=== PATIENT | male | born 1940 | race Caucasian/White ===

== ENCOUNTER 2020-03-07 07:32 | Outpatient (CLI) | payer MEDICARE, SELFPAY ==
--- NOTE | ~2020-03-07 | NM_ITS ---
EXAMINATION: NM bone scan whole body DATE: 03/07/2020 11:48 INDICATION: Malignant neoplasm of prostate. TECHNIQUE: 25 mCi Tc-99m HDP was administered intravenously. Delayed whole-body scintigrams were obt ained. COMPARISON: CT abdomen and pelvis 03/07/2020 FINDINGS: There are foci of increased activity in the left acetabulum, spine, and multiple ribs corre lating with sclerotic lesions by CT, consistent with metastatic disease. There are foci of increased activity in proximal right humerus without radiographic comparison, likely metastatic disease. Foci o f increased activity in the heads of the clavicles and at the acromioclavicular joints without radiog raphic comparison may be metastatic disease or osteoarthritis. There is increased activity in the pat ellofemoral compartments of the knees without radiographic comparison, likely osteoarthritis. IMPRESSION: 1. Widespread osseous metastatic disease. Reviewed, dictated and finalized at location A. LER SUPERVISOR
--- NOTE | ~2020-03-07 | CT_ITS ---
EXAMINATION: CT abdomen pelvis w con EXAM DATE: 03/07/2020 08:15 INDICATION: Malignant neoplasm of prostate. TECHNIQUE: Spiral CT of the abdomen and pelvis was performed following intravenous injection of 100 m L Omnipaque 350. Axial, coronal and sagittal images were reviewed. The dose-length product (DLP) fo r this examination was 872.50 mGy-cm. The exposure was tailored according to patient size (auto mA e xposure control), and iterative reconstruction (ASIR) was used as additional dose reduction technique . Comparison is made to prior examination from 04/01/2009. FINDINGS: The liver, spleen, adrenal glands and pancreas are unremarkable. There are gallstones with in an otherwise unremarkable gallbladder. No evidence of obstructive biliary disease. Portal and sp lenic veins are patent. Kidneys enhance symmetrically. There is no hydronephrosis. Small left infer ior calyceal stone. The prostate is unremarkable. The bladder is unremarkable. Largest lymph node identified is left iliac chain measuring 8 x 9 mm. No pathologically enlarged lymph nodes. There is moderate scattered arteriosclerotic disease. Cecal resection. There is moderate sigmoid colonic diverticulosis. There is no adjacent inflammatory change to suggest diverticulitis. Small umbilical, supra umbilical fat-containing hernias. The sto mach and small bowel are unremarkable. There is expected amount of colonic stool. No free intraper itoneal gas. The heart is normal in size. There are no pericardial or pleural effusions. Left bas ilar linear atelectasis. Numerous but small osteoblastic lesions, new compared to 2009 IMPRESSION: 1. Numerous small osteoblastic metastatic lesions. 2. Status post right hemicolectomy. 3. Moderate sigmoid diverticulosis. 5. Left nephrolithiasis. Reviewed, dictated and finalized at location B. B DRIVER
[2020-03-07 08:13] LABS: Estimated Glomerular Filt Rate > 60
== END 2020-03-07 07:33 | disposition home or self-care (01) ==
PROVIDERS: PCP Family Medicine; Visit Provider Urology
DX: C61 Malignant neoplasm of prostate (principal); C79.51 Secondary malignant neoplasm of bone; Z90.49 Acquired absence of other specified parts of digestive tract; K57.90 Diverticulosis of intestine, part unspecified, without perforation or abscess without bleeding; N20.0 Calculus of kidney
CPT/HCPCS: 74177; 78306; A9561; Q9967

== ENCOUNTER → 2020-06-30 08:43 | Outpatient (CLI) | payer MEDICARE, SELFPAY ==
--- NOTE | ~2020-06-30 | XR_ITS ---
EXAMINATION: XR chest 2V EXAM DATE: 06/30/2020 09:09 INDICATION: R06.02 - Shortness of breath . TECHNIQUE: Frontal and lateral projections of the chest obtained and reviewed. Comparison is made to prior examination from 02/22/2016. FINDINGS: There are innumerable scattered osteoblastic lesions, new compared to 2016 x-ray. No conflu ent consolidation, pneumothorax or pleural effusion suspected. Cardiomediastinal silhouette is normal . IMPRESSION: 1. No acute cardiac pulmonary findings. 2. Extensive osteoblastic disease. Reviewed, dictated and finalized at location A.
== END ==
PROVIDERS: PCP Family Medicine; Visit Provider Nurse Practitioner Family
DX: R05 Cough (principal); R06.02 Shortness of breath
CPT/HCPCS: 71046

== ENCOUNTER 2020-06-30 09:36 | Outpatient (CLI) | payer MEDICARE, SELFPAY ==
--- NOTE | 2020-06-30 | ECG_ITS ---
Measurements Intervals [place] Rate: 71 P: 49 VT: 188 QRS: 47 QRSD: 85 T: 35 QT: 376 QTc: 410 Interpretive Statements SINUS RHYTHM BASELINE ARTIFACT- I, II, III, AVR, AVL, AVF NORMAL ECG Electronically Signed On 06-30-2020 10:15:04 CDT by Jose Roberto Smith D.O.
== END 2020-06-30 09:37 | disposition home or self-care (01) ==
PROVIDERS: PCP Family Medicine; Visit Provider Nurse Practitioner Family
DX: R06.02 Shortness of breath (principal)
CPT/HCPCS: 93005

== ENCOUNTER 2020-07-11 12:32 | Outpatient (CLI) | payer MEDICARE, SELFPAY ==
--- NOTE | 2020-07-11 13:00 | ECHO_ITS ---
Patient Info Name: Leonardo Malagon Age: 79 years : 1940 Gender: Male Ht: 69 in Wt: 210 lbs BSA: 2.18 m2 HR: 78 bpm BP: 160 / 96 mmHg Technical Quality: Fair Exam Date: 07/11/2020 1:18 PM Exam Location: [facility] Patient Status: Outpatient Admit Date: 07/11/2020 Staff Ordering Physician: Usha Azar NP Photo Lab Manager: Marta Christina RDCS Attending Provider: Usha Azar NP Referring Physician: oDe NEWTON; Exam Type: CA echo doppler color flow Study Info Indications - essential primary hypertension Complete two-dimensional, color flow and Doppler transthoracic echocardiogram is performed. Summary 1. Complete two-dimensional, color flow and Doppler transthoracic echocardiogram is performed. 2. Left ventricular chamber dimension is normal. 3. Left ventricular systolic function is normal, estimated at 60-65%. 4. There is mildly increased left ventricular wall thickness. 5. The left ventricular diastolic function is grade I diastolic dysfunction. 6. E/e' 12 is mildly elevated. 7. No pulmonary hypertension, estimated pulmonary arterial systolic pressure is 28 mmHg. Left Ventricle E/e' 12 is mildly elevated. Left ventricular chamber dimension is normal. Left ventricular systolic function is normal, estimated at 60-65%. There is mildly increased left ventricular wall thickness. The left ventricular diastolic function is grade I diastolic dysfunction. Right Ventricle Right ventricular chamber dimension is normal. Right ventricular systolic function is normal. Left Atria Left atrial chamber dimension is normal. Right Atria Right atrial chamber dimension is normal. Aortic Valve The aortic valve is trileaflet. There is no aortic valve stenosis. There is no aortic valve regurgitation. Pulmonic Valve There is no pulmonic regurgitation. Mitral Valve There is no mitral valve stenosis. There is no mitral valve regurgitation. Tricuspid Valve There is no tricuspid valve regurgitation. No pulmonary hypertension, estimated pulmonary arterial systolic pressure is 28 mmHg. Pericardium/Pleural There is no pericardial effusion. Inferior Vena Cava Normal inferior vena cava with >50% collapse upon inspiration consistent with normal right atrial pressure, 5 mmHg. Aorta The aortic root size at the sinus of Valsalva is normal. Left Ventricular Outflow Tract Name Value Normal LVOT 2D LVOT Diameter 2.0 cm LVOT Doppler LVOT Peak Gradient 6 mmHg LVOT Mean Gradient 3 mmHg LVOT VTI 23 cm LVOT VTI/AV VTI Ratio 0.9 LVOT Stroke Volume 74 ml LVOT CO 16.0 l/min LVOT CI 7.3 l/min/m2 Mitral Valve Name Value Normal MV Doppler
== END 2020-07-11 12:33 | disposition home or self-care (01) ==
LOC: ANHCARD 12:33
PROVIDERS: PCP Family Medicine; Visit Provider Nurse Practitioner Family
DX: I10 Essential (primary) hypertension (principal); R06.00 Dyspnea, unspecified
CPT/HCPCS: 93306

== ENCOUNTER 2021-04-26 08:25 | Outpatient (CLI) | payer MEDICARE, SELFPAY ==
--- NOTE | ~2021-04-26 | CT_ITS ---
EXAMINATION: CT abdomen pelvis wo con EXAM DATE: 04/26/2021 08:48 INDICATION: Prostate cancer.. TECHNIQUE: Spiral CT of the abdomen and pelvis was performed without contrast. Axial, coronal and s agittal images of the abdomen and pelvis were reviewed. The dose-length product (DLP) for this exami nation was 1106.63 mGy-cm. The exposure was tailored according to patient size (auto mA exposure con trol), and iterative reconstruction (ASIR) was used as additional dose reduction technique. Compariso n is made to prior examination from 03/07/2020. FINDINGS: The liver, spleen, adrenal glands and pancreas are unremarkable. There are gallstones wit hin an otherwise unremarkable gallbladder. No evidence of obstructive biliary disease. Portal and s plenic veins are patent. Kidneys enhance symmetrically. There is no hydronephrosis. Left inferior c alyceal linear stone measuring about 2 x 5 mm. The prostate is unremarkable. The bladder is unremar kable. No pathologically enlarged abdomen or pelvis lymph nodes. There is moderate scattered arteri osclerotic disease. Cecal resection. There is moderate sigmoid colonic diverticulosis. There is no adjacent inflammatory change to suggest diverticulitis. Small umbilical, supra umbilical fat-containing hernias. The sto mach and small bowel are unremarkable. There is expected amount of colonic stool. No free intraper itoneal gas. The heart is normal in size. There are no pericardial or pleural effusions. Left bas ilar linear atelectasis. Again there are numerous small osteoblastic lesions, appear less sclerotic than on prior study. IMPRESSION: 1. Numerous small osteoblastic metastatic lesions, overall less dense and conspicuous compared to consuelo or study. 2. Status post right hemicolectomy. 3. Moderate sigmoid diverticulosis. 5. Left nephrolithiasis. Reviewed, dictated and finalized at location B. TER HELP IMPRESSION: 1. Numerous small osteoblastic metastatic lesions, overall less dense and consp icuous compared to prior study. 2. Status post right hemicolectomy. 3. Moderate sigmoid diverticulosis. 5. Left nephrolithiasis.
--- NOTE | ~2021-04-26 | NM_ITS ---
EXAMINATION: NM bone scan whole body DATE: 04/26/2021 12:30 INDICATION: Malignant neoplasm of the prostate TECHNIQUE: 24.29 mCi Tc-99m HDP was administered intravenously. Delayed whole-body scintigrams were obtained. COMPARISON: Prior bone scan dated 03/07/[address] abdomen and pelvis dated 04/26/2021 FINDINGS: Persistent focus of increased uptake at the anterior left seventh rib. Decreased now subtle uptake at several foci of increased uptake along multiple additional rib lesions and at the proximal right hum eral diaphysis, the rib lesions with corresponding sclerotic lesions on the CT consistent with metast atic disease. No new or enlarging foci of abnormal bone uptake to suggest progression of metastatic d isease. Foci of likely degenerative joint centered uptake at the bilateral acromioclavicular, sternoc lavicular joints and at the right knee. Likely enthesopathic uptake at the left anterior tibial tuber osity. IMPRESSION: 1. Persistent focus of increased uptake at the anterior left seventh rib decrease in degree of uptake is fissure with numerous additional more subtle lesions at multiple ribs at the proximal right humer us likely related to response to treatment of metastatic disease. Reviewed, dictated and finalized at location A. RTAINMENT USHER IMPRESSION: 1. Persistent focus of increased uptake at the anterior left seventh rib decrea se in degree of uptake is fissure with numerous additional more subtle lesions at multiple ribs at the proximal right humerus likely related to response to tr eatment of metastatic disease.
== END 2021-04-26 08:26 | disposition home or self-care (01) ==
LOC: ANHIMG 08:29
PROVIDERS: PCP Family Medicine; Visit Provider Nurse Practitioner Adult Health
DX: C61 Malignant neoplasm of prostate (principal); M89.9 Disorder of bone, unspecified; Z90.49 Acquired absence of other specified parts of digestive tract; K57.90 Diverticulosis of intestine, part unspecified, without perforation or abscess without bleeding; N20.0 Calculus of kidney
CPT/HCPCS: 74176; 78306; A9561

== ENCOUNTER → 2022-01-08 14:16 | Outpatient (CLI) | payer MEDICARE, SELFPAY ==
--- NOTE | ~2022-01-08 | XR_ITS ---
XR ribs BI 3V w CXR 2V DATE: 01/08/2022 14:35 INDICATION: Bilateral chest pain, pleural diarrhea TECHNIQUE: Multiple views of right ribs and left RIBS. PA and lateral chest COMPARISON: 06/30/2020 PA and lateral chest April 26, 2021 radionuclide bone scan FINDINGS: Patchy osseous chronic areas of the ribs and shoulder girdles, consistent with known prosta te metastases. Diffuse idiopathic skeletal hyperostosis of the thoracic spine. No apparent rib fracture. Heart size appears within normal limits. Mild aortic unfolding. No hilar or mediastinal enlargement. No pulmonary infiltrate or consolidation, pleural effusion or pulmonary vascular congestion or pneumo thorax. IMPRESSION: Patchy osteosclerotic changes of the axial skeleton consistent with known prostate metast ases Reviewed, dictated and finalized at location A. IMPRESSION: Patchy osteosclerotic changes of the axial skeleton consistent with known prostate metastases
== END ==
PROVIDERS: PCP Family Medicine; Visit Provider Nurse Practitioner Family
DX: R07.81 Pleurodynia (principal); R91.8 Other nonspecific abnormal finding of lung field
CPT/HCPCS: 71046; 71110

== ENCOUNTER → 2022-02-01 13:15 | Outpatient (CLI) | payer MEDICARE, SELFPAY ==
--- NOTE | ~2022-02-01 | XR_ITS ---
XR foot LT 2V DATE: 02/01/2022 13:39 INDICATION: Fall one month ago. Left ankle, foot knee pain TECHNIQUE: AP and lateral views COMPARISON: None FINDINGS: There is osteopenia. Prominent plantar and posterior calcaneal enthesopathy. Second through fifth hammertoe deformities. No fracture or dislocation, periosteal reaction or bone destruction. IMPRESSION: Osteopenia Prominent plantar and posterior calcaneal enthesopathy No fracture or dislocation Reviewed, dictated and finalized at location B. OLEUM SUPPLY SPECIALIST
--- NOTE | ~2022-02-01 | XR_ITS ---
XR knee LT 2V DATE: 02/01/2022 13:40 INDICATION: Fall one month ago. Left knee pain TECHNIQUE: AP and lateral views COMPARISON: None FINDINGS: No fracture or dislocation or joint effusion. Very slight periarticular spurring of the pat amos. Joint spaces are preserved. No radiopaque intra-articular loose body or chondrocalcinosis. IMPRESSION: Slight patellofemoral osteoarthritis Reviewed, dictated and finalized at location B. TOP TRIMMER
--- NOTE | ~2022-02-01 | XR_ITS ---
XR ankle LT 2V DATE: 02/01/2022 13:39 INDICATION: Fall one month ago. Left ankle, foot and knee pain TECHNIQUE: AP and lateral views COMPARISON: None FINDINGS: There is moderate soft tissue swelling of the ankle, greater medially. There is prominent p lantar and particularly prominent posterior calcaneal enthesopathy. No fracture or dislocation of the ankle or disruption of the ankle mortise. No periosteal reaction or bone destruction. IMPRESSION: Soft tissue swelling; no fracture or dislocation or disruption of ankle mortise Prominent plantar and posterior calcaneal enthesopathy Reviewed, dictated and finalized at location B. THCARE ASSOCIATE IMPRESSION: Soft tissue swelling; no fracture or dislocation or disruption of a nkle mortise Prominent plantar and posterior calcaneal enthesopathy
== END ==
PROVIDERS: PCP Family Medicine; Visit Provider Nurse Practitioner Family
DX: M25.572 Pain in left ankle and joints of left foot (principal); M17.12 Unilateral primary osteoarthritis, left knee; M85.872 Other specified disorders of bone density and structure, left ankle and foot; M77.32 Calcaneal spur, left foot; M79.89 Other specified soft tissue disorders
CPT/HCPCS: 73560; 73600; 73620

== ENCOUNTER 2022-04-03 12:56 | Outpatient (CLI) | payer MEDICARE, SELFPAY ==
--- NOTE | ~2022-04-03 | DEXA_ITS ---
Bone Density Report Name: KINGS MEJIA Age: 81 Sex: Male Ethnicity: White Date of : 1940 Indication: screening for osteoporosis; height loss; cancer; asthma or emphysema; Referring Provider: GRISELDA VASQUEZ Study: Bone densitometry was performed. Exam Date: April 03, 2022 Accession number: [id number] Bone Density: Region BMD T-score Z-score Classification AP Spine(L1-L4) 1.392 2.7 3.9 Normal Femoral Neck (Left) 0.847 -0.6 0.9 Normal Total Hip (Left) 1.054 0.1 1.2 Normal Femoral Neck (Right) 0.864 -0.5 1.1 Normal Total Hip (Right) 1.081 0.3 1.4 Normal Total Hip Mean 1.068 0.2 1.3 Normal World Health Organization criteria for BMD impression classify patients as: Normal (T-score at or above -1.0), Osteopenia (T-score between -1.0 and -2.5), or Osteoporosis (T-score at or below -2.5). 10-year Fracture Risk: FRAX not reported because: All T-scores for Spine Total, Hip Total, Femoral Neck at or above -1.0 Clinical Information Provided by Patient: Has used the following medications: Vitamin D Has the following medical conditions: Asthma or Emphysema, Cancer Patient maximum height was 69 No regular weight bearing exercise Does not regularly consume dairy products Drinks caffeinated beverages Impression: The patient has normal bone mass. Discussion: BONE DENSITY IS ABOVE THE MINIMUM DESIRABLE LEVEL AT ALL SKELETAL SITES TESTED. This patient?s bone mineral density is above the minimum desirable level (T-score -1.0 or better) at all sites measured. The patient should follow a healthful lifestyle (good nutrition with adequate calcium and vitamin D, and appropriate weight-bearing exercise). Follow-Up: Consider repeating this study in 5 years or sooner if there is some new clinical indication. Reported by: [facility] on 04/03/2022 1:40:00 PM. Reviewed, dictated and finalized at location ADevante [facility]OSPITALFatuma
== END 2022-04-03 12:57 | disposition home or self-care (01) ==
PROVIDERS: PCP Family Medicine; Visit Provider Urology
DX: M85.88 Other specified disorders of bone density and structure, other site (principal)
CPT/HCPCS: 77080

== ENCOUNTER → 2022-11-30 12:32 | Outpatient (CLI) | payer MEDICARE, SELFPAY ==
--- NOTE | ~2022-11-30 | XR_ITS ---
EXAMINATION: XR knee LT 3V DATE: 11/30/2022 14:00 INDICATION: Left knee pain TECHNIQUE: Three views of the left knee were obtained. COMPARISON: 02/01/2022 FINDINGS: Alignment is normal. No fracture or osteochondral lesion. There is mild tricompartmental os teoarthritis characterized by tiny marginal osteophytes. No joint effusion/synovitis. Soft tissues a re unremarkable. IMPRESSION: 1. No acute osseous abnormality. Reviewed, dictated and finalized at location F.
--- NOTE | ~2022-11-30 | XR_ITS ---
EXAMINATION: XR ribs BI 3V w CXR 2V INDICATION: Pleurodynia TECHNIQUE: PA and lateral views of the chest and 3 views of the bilateral ribs were obtained. COMPARISON: 01/08/2022 FINDINGS: The lungs are free of acute opacities. No pleural effusion or pneumothorax. The cardiomedia stinal silhouette is normal. No displaced rib fracture is identified. There is an old healed fracture of the left sixth rib. Subtle sclerotic osseous lesions are consistent with metastatic prostate canc er. IMPRESSION: 1. No acute cardiopulmonary abnormality or evidence of displaced rib fracture. Reviewed, dictated and finalized at location F.
== END ==
PROVIDERS: PCP Family Medicine; Visit Provider Physician Assistant Medical
DX: M25.562 Pain in left knee (principal); R07.81 Pleurodynia
CPT/HCPCS: 71046; 71110; 73562

== ENCOUNTER 2023-09-02 09:46 | Outpatient (CLI) | payer MEDICARE, SELFPAY ==
[2023-09-02 10:18] LABS: Hematocrit 43.6 % (42.0-52.0); Hemoglobin 15.1 g/dL (14.0-18.0); Mean Corpuscular HGB Conc 34.6 g/dl (32-36); Mean Corpuscular Hemoglobin 30.5 pg (26-34); Mean Corpuscular Volume 88.1 fl (80-100); Mean Platelet Volume 10.2 fl (7.4-10.4); Platelet Count Result 196 k/mm3 (150-375); Red Blood Count 4.95 M/mm3 (4.6-6.20); Red Cell Distribution Width 13.2 % (11.5-14.5); White Blood Count 5.3 K/mm3 (4.5-10.0)
[2023-09-02 10:28] LABS: Hemoglobin A1C 5.5 % (<5.7)
[2023-09-02 10:30] LABS: Alanine Aminotransferase 10 U/L (6-50); Albumin Level 4.3 g/dL (3.5-5.1); Alkaline Phosphatase 72 U/L (38-126); Anion Gap 8 mmol/L (4-12); Aspartate Amino Transferase 18 U/L (17-59); Bilirubin,Total 0.6 mg/dL (0.2-1.3); Blood Urea Nitrogen 17 mg/dL (9-20); Calcium 9.4 mg/dL (8.4-10.2); Carbon Dioxide 29 mmol/L (22-30); Chloride 98 mmol/L (98-107); Cholesterol 129 mg/dL (0-200); Estimated Glomerular Filt Rate > 60; Glucose 112 mg/dL (65-110); HDL Direct 47 mg/dL; Sodium 135 mmol/L (137-145); Triglycerides 195 mg/dL (<150)
[2023-09-02 10:41] LABS: LDL Cholesterol Direct 60 mg/dL
[2023-09-02 10:55] LABS: Free T4 Free Thyroxine 1.45 ng/mL (0.78-2.19)
== END 2023-09-02 09:47 | disposition home or self-care (01) ==
LOC: ANHLAB 09:51
PROVIDERS: PCP Family Medicine; Visit Provider Nurse Practitioner Adult Health
DX: R06.00 Dyspnea, unspecified (principal); D64.9 Anemia, unspecified; E78.5 Hyperlipidemia, unspecified; Z13.29 Encounter for screening for other suspected endocrine disorder; R73.01 Impaired fasting glucose
CPT/HCPCS: 36415; 80053; 80061; 83036; 84439; 84443; 85027

== ENCOUNTER 2024-04-13 12:29 | Outpatient (CLI) | payer MEDICARE, SELFPAY ==
--- NOTE | ~2024-04-13 | PE_ITS ---
EXAMINATION: PET_PETPSMAST_PT DATE: 04/13/2024 15:01 INDICATION: Prostate cancer TECHNIQUE: 5.2 mCi of Illucix [id number]) was administered i.v. Low dose computed tomogr aphy (CT) images were acquired from the base of the brain to the base of the brain to the proximal th ighs for attenuation correction and anatomic localization. Positron emission tomography (PET) images were acquired in the same distribution beginning 89 minutes after injection. Images including fused P ET/CT images were reconstructed in axial, coronal, and sagittal planes. 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 The dose-length product was 1665.59mGy-cm. COMPARISON: CT dated 05/06/2021 FINDINGS: Head/neck: Typical pattern of symmetric physiologic increased activity in the lacrimal, parotid and submandibula r glands as well as along the mucosa of the nasal and oral cavities, pharynx and hypopharynx. No path ologically enlarged cervical lymphadenopathy or suspicious foci of increased uptake in the visualized head or neck. Chest: Chronic mucocele and associated discoid atelectasis/scarring at the posterior basilar segment of the left lower lobe. There are several unchanged chronic chronic lisa fissural nodules in both lungs, the 2 largest each measuring 9 x 7 mm along the left and right major fissures. There are a multiple afshan tional smaller pulmonary nodules the majority with tree-in-bud pattern in the inferior right upper lo be. No abnormal intrapulmonary PSMA activity. Heart size is normal. Atherosclerotic coronary artery c alcification. No pericardial effusion. Bilateral gynecomastia. There are several scattered calcified mediastinal lymph nodes consistent with old granulomatous disease. There is mild increased PSMA uptak e with maximal SUV 5.6 associated with a 7 mm AP window lymph node at the left side of the allen. Th ere is additional mildly increased PSMA uptake with maximal SUV of 3.5 associated with a second 3 mm AP window lymph node along the left side of the ascending thoracic aorta. Abdomen/pelvis/proximal thighs: Physiologic renal accumulation and excretion of activity in the kidneys, bladder and along portions o f ureters. 4 mm nonobstructing left renal stone. There are photopenic defects associated with small c ysts at the periphery of both kidneys. This includes a 1.5 cm high attenuation hemorrhagic versus pro teinaceous cyst. There are small calcified gallstones in the normal decompressed gallbladder. Normal degree and slightly heterogenous pattern of increased uptake throughout the liver and spleen without radiologic correlate or dominant PSMA avid lesion. The pancreas and bilateral adrenal glands are norm al. Moderate uptake scattered throughout the bowels with typical duodenal and proximal jejunal predom inance and without radiologic correlate, also likely physiologic. There is mild moderate diverticulos is along the sigmoid colon without adjacent inflammatory change to suggest diverticulitis. Postopera tive changes of prior right hemicolectomy with ileocolic anastomosis in the right abdomen. No other a bnormal foci of increased uptake or pathologically enlarged lymphadenopathy in the abdomen, pelvis or proximal thighs. Musculoskeletal: Severe cervical, thoracic and lumbar spondylosis with bridging osteophytes at multiple levels consist ent with diffuse idiopathic skeletal hyperostosis (DISH). Continued decrease in density of the previo usly noted numerous small sclerotic lesion initially seen on the CT dated 03/07/2020 in the majority of which are now indiscernible. No no new or enlarging suspicious lytic or blastic bone lesions. No P SMA avid bone lesions. IMPRESSION: 1. Interval resolution of the prior numerous sclerotic bone lesions consistent with likely response t o treatment of prior metastatic disease. 2. Mild uptake associated with a couple normal-sized mediastinal lymph nodes in the AP window which d espite the relatively low uptake and atypical distribution raises some suspicion for metastatic disea se. Recommend follow-up with serial PSMA levels with repeat imaging if these increase or as clinicall y indicated. 3. A few chronic likely benign lisa fissural nodules and multiple new 4 mm smaller nodules many with tree-in-bud pattern in the right lower lobe which are without PSMA uptake and are most likely infecti ous/inflammatory in etiology. Reviewed, dictated and finalized at location [facility]. [employer] IMPRESSION: 1. Interval resolution of the prior numerous sclerotic bone lesions consistent with likely response to treatment of prior metastatic disease. 2. Mild uptake associated with a couple normal-sized mediastinal lymph nodes in the AP window which despite the relatively low uptake and atypical distributio n raises some suspicion for metastatic disease. Recommend follow-up with serial PSMA levels with repeat imaging if these increase or as clinically indicated. 3. A few chronic likely benign lisa fissural nodules and multiple new 4 mm smal ler nodules many with tree-in-bud pattern in the right lower lobe which are wit hout PSMA uptake and are most likely infectious/inflammatory in etiology.
--- OUTSIDE RECORDS SUMMARY | 2024-04-13 13:04 | XMS_ITS | Referral Summary ---
Author Organization [facility] Address [address] [place] [address] Care Team Providers Care Job Printer Apprentice Name Role Phone Unavailable Primary Care Provider Unavailabl e Source Comments [facility],non-owned Affiliates and Associated Physician Practices is amultiple site organization consisting of ambulatory clinics and hospital sitesin [place], [place], [place] and [place]. This disclosure is being madepursuant to the Care Everywhere program and may not contain all information available regarding this patient. Last updated 17.[facility] Climateminder Social History Tobacco Use Types Packs/Day Years Used Date Smoking Tobacco: Never Assessed Sex and Gender Information Value Date Recorded Sex Assigned at Not on file Gender Identity Not on file Sexual Orientation Not on file Plan of Treatment Not on file
--- OUTSIDE RECORDS SUMMARY | 2024-04-13 13:04 | XMS_ITS | Clinical Summary ---
Author Organization [facility] Address [address] [place] [address] Care Team Providers Care Order Tracer Name Role Phone Unavailable Primary Care Provider Unavailabl e Source Comments [facility],non-owned Affiliates and Associated Physician Practices is amultiple site organization consisting of ambulatory clinics and hospital sitesin [place], [place], [place] and [place]. This disclosure is being madepursuant to the Care Everywhere program and may not contain all information available regarding this patient. Last updated 17.[facility] Social History Tobacco Use Types Packs/Day Years Used Date Smoking Tobacco: Never Assessed Sex and Gender Information Value Date Recorded Sex Assigned at Not on file Gender Identity Not on file Sexual Orientation Not on file Plan of Treatment Health Maintenance Due Date Last Done Comments DTAP/TDAP/TD VACCINES (1 - Tdap) 1960 PNEUMOCOCCAL VACCINE 50+ (1 of 1 - PCV) 07/21/1991 ZOSTER VACCINE (1 of 2) 07/21/1991 Respiratory Syncytial Virus (RSV) Vaccine Pt: or over 60 yrs (1 - 1-dose 75+ series) 2016 COVID-19 VACCINE ( - 2023-2 5 season) 2023 INFLUENZA VACCINE (#1) 2023 DEPRESSION SCREENING 03/18/2024 HEPATITIS B VACCINE Aged Out No longe r eligible based on patient's age to complete this topic HIB VACCINE Aged Out No longer eligi ble based on patient's age to complete this topic HPV VACCINE Aged Out No longer eligi ble based on patient's age to complete this topic MENINGOCOCCAL (Group B) VACCINE Aged Out No longer eligible based on patient's age to complete this topic MENINGOCOCCAL VACCINE Aged Out No mary marilee eligible based on patient's age to complete this topic
--- OUTSIDE RECORDS SUMMARY | 2024-04-13 13:04 | XMS_ITS | Encounter Summary ---
Author Organization [facility] Address [address] [place] [address] Care Team Providers Care Manager Technology Name Role Phone Unavailable Primary Care Provider Unavailabl e Encounter Details Date Type Department Care Team (Late st Contact Info) Description 12/30/2019 Lab Requisition [facility] [address] [place] [address] Usha Azar, BARTACKER-MEDICAL TECHNOLOGIST MICROBIOLOGY [address] [address] Social History Tobacco Use Types Packs/Day Years Used Date Smoking Tobacco: Never Assessed Sex and Gender Information Value Date Recorded Sex Assigned at Not on file Gender Identity Not on file Sexual Orientation Not on file documented as of this encounter Plan of Treatment Not on file documented as of this encounter Procedures Procedure Name Priority Date/Time Associated Diagnosis Comments BASIC METABOLIC PANEL (CALCIUM TOTAL) STAT 12/30/2019 2:28 PM CDT documented in this encounter Results * (ABNORMAL) BASIC METABOLIC PANEL (CALCIUM TOTAL) (12/30/2019 2:28 PM CDT) Glucose 117(H) 70 - 105 mg/dL 12/30/2019 6:21 PM CDT [facility] Sodium 138 136 - 145 mmol/L 12/30/2019 6:21 PM CDT [facility] Potassium 4.4 3.5 - 5.1 mmol/L 12/30/2019 6:21 PM CDT [facility] Chloride 99 98 - 107 mmol/L 12/30/2019 6:21 PM CDT [facility] CO2 28 23 - 31 mmol/L 12/30/2019 6:21 PM CDT [facility] Calcium 8.9 8.4 - 10.4 mg/dL 12/30/2019 6:21 PM CDT [facility] Anion Gap 11 8 - 16 mmol/L 12/30/2019 6:21 PM CDT [facility] BUN 15 8.4 - 25.7 mg/dL 12/30/2019 6:21 PM CDT [facility] Creatinine 1.04 0.72 - 1.25 mg/dL 12/30/2019 6:21 PM CDT [facility] eGFR by MDRD >60 mL/min/1.7 3m2 12/30/2019 6:21 PM CDT [facility] eGFR by MDRD >60 mL/min/1.7 3m2 12/30/2019 6:21 PM CDT [facility] Blood BLOOD SPECIMEN / Unknown Venipuncture / Unknown 12/30/2019 2:28 PM CDT 12/30/2019 5:51 PM CDT Usha Azar BARTACKER-MEDICAL TECHNOLOGIST MICROBIOLOGY LAB - CHEMIS TRY ORDERABLES [facility] [address] [place] [address] documented in this encounter Visit Diagnoses Not on filedocumented in this encounter
--- OUTSIDE RECORDS SUMMARY | 2024-04-13 13:04 | XMS_ITS | Patient Health Summary ---
Author Organization [facility] Address [address] [place] [address] Care Team Providers Care Diamond Merchant Name Role Phone Unavailable Primary Care Provider Unavailabl e Note from [facility],non-owned Affiliates and Associated Physician Practices is amultiple site organization consisting of ambulatory clinics and hospital sitesin [place], [place], [place]. This disclosure is being madepursuant to the Care Everywhere program and may not contain all information available regarding this patient. Last updated 17.[facility] Contrib Social History Tobacco Use Types Packs/Day Years Used Date Smoking Tobacco: Never Assessed Sex and Gender Information Value Date Recorded Sex Assigned at Not on file Gender Identity Not on file Sexual Orientation Not on file Procedures * BASIC METABOLIC PANEL (CALCIUM TOTAL)(Performed 12/30/2019) Results * (ABNORMAL) BASIC METABOLIC PANEL (CALCIUM [...] - 25.7 mg/dL 12/30/2019 6:21 PM CDT [facility] Creatinine 1.04 0.72 - 1.25 mg/dL 12/30/2019 6:21 PM CDT [facility] eGFR by MDRD >60 mL/min/1.7 3m2 12/30/2019 6:21 PM CDT [facility] eGFR by MDRD >60 mL/min/1.7 3m2 12/30/2019 6:21 PM CDT [facility] Blood BLOOD SPECIMEN / Unknown Venipuncture / Unknown 12/30/2019 2:28 PM CDT 12/30/2019 5:51 PM CDT Usha Azar BOOK SALESMAN-DEPARTMENT EDITOR LAB - CHEMIS TRY ORDERABLES [facility] [address] [place] [address]
== END 2024-04-13 12:30 | disposition home or self-care (01) ==
PROVIDERS: PCP Family Medicine; Visit Provider Urology
DX: M89.0 Algoneurodystrophy (principal); R59.0 Localized enlarged lymph nodes; R91.8 Other nonspecific abnormal finding of lung field; C61 Malignant neoplasm of prostate
CPT/HCPCS: 78815; A9596